=== PATIENT | female | born 1965 | race African-American/Black ===

== ENCOUNTER 2016-08-28 10:21 | Outpatient (CLI) | payer BC | END 2016-08-28 19:27 | disposition home or self-care (01) | LOC: LAB 10:21 | DX: N39.0 Urinary tract infection, site not specified (principal) | CPT/HCPCS: 87086; 87088 ==

== ENCOUNTER 2016-09-07 15:25 | Outpatient (CLI) | payer BC | END 2016-09-07 19:14 | disposition home or self-care (01) | LOC: RAD 15:25 | DX: M54.5 Low back pain (principal) ==

== ENCOUNTER 2021-04-27 11:14 | Inpatient (IN) | payer BC, OTHER ==
[2021-04-27] VITALS (12 sets, daily range): BP systolic 102–133; BP diastolic 69–89; TEMP 98–101.3; Ht 160 cm; Wt 77.3 kg
[~2021-04-27] VITALS: Ht 160 cm; Wt 77.3 kg
[2021-04-27 11:47] LABS: PLATELET COUNT 261 K/uL (152-353)
[2021-04-27 11:57] LABS: POTASSIUM 3.6 mmol/L (3.6-5.2)
[2021-04-27 12:06] LABS: PARTIAL THROMBOPLASTIN TIME 29.7 SECONDS (24.5-33.6)
[2021-04-28 04:00] VITALS: BP 122/80; TEMP 97.9
[2021-04-28 07:21] VITALS: BP 137/81; TEMP 98.5
[2021-04-28 08:00] VITALS: BP 137/81; TEMP 98.5
[2021-04-28 08:48] LABS: PLATELET COUNT 289 K/uL (152-353)
[2021-04-28 08:55] LABS: POTASSIUM 4.6 mmol/L (3.6-5.2)
[2021-04-28 11:21] VITALS: BP 129/78; TEMP 98.1
[2021-04-28] MEDS ORDERED: LISI10TA11 PO (11:33)
[2021-04-28] MEDS ORDERED: VASCEPA1 GM PO ×2 (11:36→11:37)
[2021-04-28] MEDS ORDERED: ROSU10TA PO (11:36)
[2021-04-28] MEDS ORDERED: METF500T PO (11:38)
[2021-04-28] MEDS ORDERED: GEMFIBROZIL PO (11:39)
[2021-04-28] MEDS ORDERED: VITAMIN D325 MCG PO (11:40)
[2021-04-28] MEDS ORDERED: ZINC SULFATE220 M1 PO (11:41)
[2021-04-28] MEDS ORDERED: ASA LOW DOSE81 MG PO (11:42)
[2021-04-28] MEDS ORDERED: GNP MELATONIN MA5 MG PO ×2 (11:44→11:45)
[2021-04-28] MEDS ORDERED: VITAMIN C 500 M1 TAB PO (11:45)
[2021-04-28] MEDS ORDERED: PERIDEX0.12 % MT (11:46)
[2021-04-28 20:27] VITALS: BP 129/86; TEMP 98.7
[2021-04-29 00:04] VITALS: BP 119/78; TEMP 98.3
[2021-04-29 04:10] VITALS: BP 130/82; TEMP 97.9
[2021-04-29 05:39] LABS: PLATELET COUNT 327 K/uL (152-353)
[2021-04-29 06:02] LABS: POTASSIUM 3.9 mmol/L (3.6-5.2)
[2021-04-29 08:00] VITALS: BP 142/84; TEMP 98.1
[2021-04-29 12:00] VITALS: BP 140/77; TEMP 98.4
[2021-04-29 16:00] VITALS: BP 149/86; TEMP 98.5
[2021-04-29 20:00] VITALS: BP 156/93; TEMP 98.8
[2021-04-30] VITALS: BP 164/89; TEMP 97.7
[2021-04-30 04:00] VITALS: BP 119/78; TEMP 97.7
[2021-04-30 05:30] LABS: PLATELET COUNT 381 K/uL (152-353)
[2021-04-30 05:47] LABS: POTASSIUM 3.8 mmol/L (3.6-5.2)
[2021-04-30 08:00] VITALS: BP 153/89; TEMP 97.3
[2021-04-30 12:00] VITALS: BP 158/83; TEMP 97.3
[2021-04-30 16:00] VITALS: BP 152/93; TEMP 98
[2021-04-30 20:00] VITALS: BP 168/90; TEMP 98.8
[2021-05-01] VITALS: BP 148/84; TEMP 97.7
[2021-05-01 04:00] VITALS: BP 146/80; TEMP 97.3
[2021-05-01 04:36] LABS: PLATELET COUNT 357 K/uL (152-353)
[2021-05-01 05:07] LABS: POTASSIUM 3.5 mmol/L (3.6-5.2)
[2021-05-01 08:00] VITALS: BP 152/87; TEMP 98
[2021-05-01 12:00] VITALS: BP 112/75; TEMP 98.2
[2021-05-01 16:00] VITALS: BP 118/76; TEMP 98.8
[2021-05-01 20:00] VITALS: BP 125/76; TEMP 98.4
[2021-05-02] VITALS: BP 142/84; TEMP 98.4
[2021-05-02 04:00] VITALS: BP 118/74; TEMP 99.3
[2021-05-02 05:01] LABS: PLATELET COUNT 428 K/uL (152-353)
[2021-05-02 05:22] LABS: POTASSIUM 3.6 mmol/L (3.6-5.2)
[2021-05-02 08:00] VITALS: BP 120/82; TEMP 98
[2021-05-02 12:00] VITALS: BP 131/84; TEMP 98
[2021-05-02 16:00] VITALS: BP 125/84; TEMP 98.2
[2021-05-02 19:45] VITALS: BP 136/91; TEMP 98.4
[2021-05-03] VITALS (7 sets, daily range): BP systolic 124–157; BP diastolic 82–96; TEMP 97.6–98.8
[2021-05-03 05:19] LABS: POTASSIUM 3.4 mmol/L (3.6-5.2)
[2021-05-03 05:35] LABS: PLATELET COUNT 383 K/uL (152-353)
[2021-05-04 04:24] VITALS: BP 134/91; TEMP 98.4
[2021-05-04 08:00] VITALS: BP 150/93; TEMP 97.6
[2021-05-04 12:00] VITALS: BP 144/85; TEMP 98.4
[2021-05-04 16:00] VITALS: BP 146/77; TEMP 98.5
[2021-05-04 20:00] VITALS: BP 158/92; TEMP 98.2
[2021-05-04 23:58] VITALS: BP 113/72; TEMP 98.2
[2021-05-05 04:00] VITALS: BP 127/81; TEMP 98.6
[2021-05-05 08:00] VITALS: BP 148/83; TEMP 97.9
[2021-05-05 12:00] VITALS: BP 136/92; TEMP 98.4
== END 2021-05-05 12:50 | disposition home or self-care (01) | DRG 177 ==
LOC: ED 11:14 → MED/SURG 12:15
PROVIDERS: ADMIT Hospitalist; ATTEND Internal Medicine
DX: U07.1 COVID-19 (principal); J12.82 Pneumonia due to coronavirus disease 2019; J96.01 Acute respiratory failure with hypoxia; I10 Essential (primary) hypertension; E78.49 Other hyperlipidemia; E11.9 Type 2 diabetes mellitus without complications; E66.8 Other obesity; Z68.30 Body mass index [BMI] 30.0-30.9, adult
CPT/HCPCS: 36415; 36600; 80048; 80053; 82550; 82805; 83605; 83880; 84484; 85007; 85027; 85610; 85730; 87040; 87635; 93005; 94760; 96360; 96375; 99284; J0248; J0456; J0696; J1100; J1650; J1815; U0003